=== PATIENT | female | born 1995 | race Two or more races ===

== ENCOUNTER 2022-08-27 09:39 | Inpatient (IN) | payer OTHER ==
[~2022-08-27] VITALS: Ht 160 cm; Wt 104.3 kg
[2022-08-27] MEDS ORDERED: PRENATAL + DHA1 EAC1 PO (09:53)
[2022-08-28] MEDS ORDERED: CEPHALEXIN500 M1 PO (13:41)
== END 2022-08-28 14:29 | disposition home or self-care (01) | DRG 805 ==
LOC: LDR 09:39 → OB/GYN 14:31
PROVIDERS: ADMIT Specialist; ATTEND Specialist
PROC: 10E0XZZ Delivery of Products of Conception, External Approach (ICD-10-PCS; principal; 2022-08-27)
PROC: 4A1HXCZ Monitoring of Products of Conception, Cardiac Rate, External Approach (ICD-10-PCS; 2022-08-27)
DX: O45.8X2 Other premature separation of placenta, second trimester (principal); O41.1220 Chorioamnionitis, second trimester, not applicable or unspecified; Z37.1 Single stillbirth; O60.12X0 Preterm labor second trimester with preterm delivery second trimester, not applicable or unspecified; O41.1420 Placentitis, second trimester, not applicable or unspecified; Z3A.20 20 weeks gestation of pregnancy; Z20.822 Contact with and (suspected) exposure to COVID-19

== ENCOUNTER 2022-12-07 10:35 | Outpatient (CLI) | payer OTHER ==
[~2022-12-07 10:35] MED LIST: CEPHALEXIN500 M1 PO; PRENATAL + DHA1 EAC1 PO
== END 2022-12-07 12:15 | disposition home or self-care (01) ==
LOC: PRENATAL 10:35
PROVIDERS: ATTEND Obstetrics & Gynecology Maternal & Fetal Medicine
DX: O99.210 Obesity complicating pregnancy, unspecified trimester (principal); O36.80X0 Pregnancy with inconclusive fetal viability, not applicable or unspecified; O26.899 Other specified pregnancy related conditions, unspecified trimester; O34.30 Maternal care for cervical incompetence, unspecified trimester; Z3A.01 Less than 8 weeks gestation of pregnancy

== ENCOUNTER 2023-01-05 09:57 | Outpatient (CLI) | payer OTHER | END 2023-01-05 11:10 | disposition home or self-care (01) | LOC: PRENATAL 09:57 | PROVIDERS: ATTEND Obstetrics & Gynecology Maternal & Fetal Medicine | DX: O36.80X0 Pregnancy with inconclusive fetal viability, not applicable or unspecified (principal); O99.210 Obesity complicating pregnancy, unspecified trimester; O09.219 Supervision of pregnancy with history of pre-term labor, unspecified trimester; Z3A.12 12 weeks gestation of pregnancy ==

== ENCOUNTER 2023-02-01 10:47 | Outpatient (CLI) | payer OTHER | END 2023-02-01 13:06 | disposition home or self-care (01) | LOC: PRENATAL 10:47 | PROVIDERS: ATTEND Obstetrics & Gynecology Maternal & Fetal Medicine | DX: O26.849 Uterine size-date discrepancy, unspecified trimester (principal); O09.219 Supervision of pregnancy with history of pre-term labor, unspecified trimester; O44.00 Complete placenta previa NOS or without hemorrhage, unspecified trimester; Z3A.16 16 weeks gestation of pregnancy ==

== ENCOUNTER 2023-02-23 13:46 | Outpatient (CLI) | payer OTHER | END 2023-02-23 16:40 | disposition home or self-care (01) | LOC: PRENATAL 13:46 | PROVIDERS: ATTEND Obstetrics & Gynecology Maternal & Fetal Medicine | DX: O35.9XX0 Maternal care for (suspected) fetal abnormality and damage, unspecified, not applicable or unspecified (principal); O35.3XX0 Maternal care for (suspected) damage to fetus from viral disease in mother, not applicable or unspecified; O34.30 Maternal care for cervical incompetence, unspecified trimester; O09.219 Supervision of pregnancy with history of pre-term labor, unspecified trimester; O99.210 Obesity complicating pregnancy, unspecified trimester ==

== ENCOUNTER 2023-02-27 14:16 | Emergency (ER) | payer OTHER ==
[~2023-02-27] VITALS: Ht 162.6 cm; Wt 107.0 kg
== END 2023-02-27 19:47 | disposition home or self-care (01) ==
LOC: ER 14:16
DX: O26.892 Other specified pregnancy related conditions, second trimester (principal); Z3A.21 21 weeks gestation of pregnancy; R10.2 Pelvic and perineal pain

== ENCOUNTER 2023-03-20 13:46 | Outpatient (CLI) | payer OTHER | END 2023-03-20 17:21 | disposition home or self-care (01) | LOC: PRENATAL 13:46 | PROVIDERS: ATTEND Obstetrics & Gynecology Maternal & Fetal Medicine | DX: O26.849 Uterine size-date discrepancy, unspecified trimester (principal); O34.30 Maternal care for cervical incompetence, unspecified trimester; O99.210 Obesity complicating pregnancy, unspecified trimester; Z36.9 Encounter for antenatal screening, unspecified; O09.219 Supervision of pregnancy with history of pre-term labor, unspecified trimester; Z3A.23 23 weeks gestation of pregnancy ==

== ENCOUNTER 2023-05-22 14:17 | Outpatient (CLI) | payer OTHER | END 2023-05-22 17:21 | disposition home or self-care (01) | LOC: PRENATAL 14:17 | PROVIDERS: ATTEND Obstetrics & Gynecology Maternal & Fetal Medicine | DX: O26.849 Uterine size-date discrepancy, unspecified trimester (principal); O99.210 Obesity complicating pregnancy, unspecified trimester; O36.8199 Decreased fetal movements, unspecified trimester, other fetus; O09.219 Supervision of pregnancy with history of pre-term labor, unspecified trimester; O34.30 Maternal care for cervical incompetence, unspecified trimester; Z3A.32 32 weeks gestation of pregnancy ==

== ENCOUNTER 2023-07-05 16:00 | Inpatient (IN) | payer OTHER ==
[~2023-07-05] VITALS: Ht 162.6 cm; Wt 118.8 kg
[2023-07-05 16:38] LABS: URINE APPEARANCE Clear; URINE BILIRRUBIN Negative (NEGATIVE); URINE BLOOD Large; URINE COLOR Yellow; URINE GLUCOSE Negative (NEGATIVE); URINE LEUKOCYTE Moderate; URINE NITRATE Negative; URINE PROTEIN Negative (NEGATIVE)
[2023-07-05 16:38] LABS: HEMATOCRIT 35.8 % (36.0-45.00); MEAN CELL VOLUME 87.8 fL (80.00-100.00); MEAN CORPUSCULAR HEMOGLOBIN 29.5 pg (27.00-32.0); MEAN CORPUSCULAR HGB CONC 33.6 g/dl (32.0-36.0); PLATELET COUNT 300 K/uL (150-450); RED BLOOD COUNT 4.07 M/uL (4.00-6.00); RED CELL DISTRIBUTION WIDTH 15.4 % (11.5-14.5)
[2023-07-05 16:42] LABS: URINE EPITHELIAL CELLS 19.4 uL (0.0-38.8); URINE RBC 642.3 uL (0.0-20.8); URINE WBC 203.1 uL (0.0-23.2)
[2023-07-05 16:54] LABS: INR 0.99; PARTIAL THROMBOPLASTIN TIME 25.9 SECONDS (22.0-34.0); PROTHROMBIN TIME 10.4 SECONDS (9.0-11.5)
[2023-07-05 17:00] LABS: ALBUMIN 2.7 gm/dL (3.4-5.0); BILIRUBIN TOTAL 0.24 mg/dL (0.3-1.2); CALCIUM 9.1 mg/dL (8.5-10.1); CREATININE SERUM 0.6 mg/dL (0.55-1.02); GFR 119.92; GLOBULINA 3.7 G/DL (2.4-3.5); POTASSIUM 4.18 mEq/L (3.5-5.1); TOTAL PROTEIN 6.4 gm/dL (6.4-8.2)
[2023-07-06 01:05] LABS: ABG PH 7.293 (7.35-7.45); ABG PO2 30.4 mmHg (80-100); ABG pCO2 46.7 mmHg (35-45); BASE EXCESS -4.6 mmol/l; BICARBONATE 22.1 mmol/l (23-25); SaO2 48.9 %
[2023-07-06 01:06] LABS: Tco2 23.5 mmol/l; o2 21 %
[2023-07-06 15:29] LABS: HEMATOCRIT 34.8 % (36.0-45.00); HEMOGLOBIN 11.5 g/dL (12.0-15.00); MEAN CELL VOLUME 88.3 fL (80.00-100.00); MEAN CORPUSCULAR HEMOGLOBIN 29.3 pg (27.00-32.0); MEAN CORPUSCULAR HGB CONC 33.2 g/dl (32.0-36.0); PLATELET COUNT 272 K/uL (150-450); RED BLOOD COUNT 3.94 M/uL (4.00-6.00); RED CELL DISTRIBUTION WIDTH 15.3 % (11.5-14.5)
== END 2023-07-07 14:18 | disposition home or self-care (01) | DRG 807 ==
LOC: LDR 16:00 → OB/GYN 23:44
PROVIDERS: Obstetrics & Gynecology; ADMIT Specialist; ATTEND Specialist
PROC: 10E0XZZ Delivery of Products of Conception, External Approach (ICD-10-PCS; principal; 2023-07-05)
PROC: 0UQG7ZZ Repair Vagina, Via Natural or Artificial Opening (ICD-10-PCS; 2023-07-05)
PROC: 4A1HXCZ Monitoring of Products of Conception, Cardiac Rate, External Approach (ICD-10-PCS; 2023-07-05)
DX: O70.0 First degree perineal laceration during delivery (principal); Z37.0 Single live birth; O99.214 Obesity complicating childbirth; E66.9 Obesity, unspecified; Z3A.38 38 weeks gestation of pregnancy; Z20.822 Contact with and (suspected) exposure to COVID-19

== ENCOUNTER 2025-04-02 18:36 | Outpatient (CLI) | payer OTHER ==
[~2025-04-02] VITALS: Ht 160 cm; Wt 104.3 kg
[2025-04-02 18:55] VITALS: BP 102/66
[2025-04-02] MEDS ORDERED: RINGERS SOLUTION,LACTATED 1,000 ML IV SCH (19:00)
[2025-04-02] MEDS ORDERED: CEPHALEXIN750 MG PO (19:11)
[2025-04-02] MEDS ORDERED: ECOTRIN81 MG PO (19:11)
[2025-04-02] MEDS ORDERED: IRON18 M1 PO (19:11)
[2025-04-02 19:30] LABS: BASO % 0.2 % (0.1-1.2); EOS # 0.23 (0.04-0.54); EOS % 1.8 % (0.7-7.0); LYMPH # 1.80 (1.18-3.74); LYMPH % 13.9 % (19.3-53.1); MEAN PLATELET VOLUME 9.60 fl (9.4-12.4); MONO # 0.76 (0.24-0.82); MONO % 5.9 % (4.7-12.5); NEUT # 10.06 (1.56-6.13); NEUT % 77.7 % (34.0-71.1); RED CELL DISTRIBUTION WIDTH 13.8 % (11.6-14.4); URINE APPEARANCE Cloudy; URINE BILIRRUBIN Negative (NEGATIVE); URINE BLOOD Small; URINE COLOR Yellow; URINE GLUCOSE Negative (NEGATIVE); URINE KETONE Trace (NEGATIVE); URINE LEUKOCYTE Large; URINE NITRATE Negative; URINE PROTEIN Trace (NEGATIVE); URINE UROBILINOGEN 1.0 E.U./dl
[2025-04-02 19:34] LABS: URINE BACTERIA 496.7 uL (0.0-1933); URINE EPITHELIAL CELLS 55.5 uL (0.0-38.8); URINE RBC 49.7 uL (0.0-20.8); URINE WBC 378.9 uL (0.0-23.2)
[2025-04-02 19:51] LABS: INR 0.99
[2025-04-02 19:55] LABS: ALT/SGPT 15.0 U/L (12-78); AST/SGOT 11.0 U/L (15-37); BILIRUBIN TOTAL 0.26 mg/dL (0.3-1.2); BUN CREA RATIO 16.0 (7.0-25.0); CREATININE SERUM 0.51 mg/dL (0.55-1.02); GFR 143.59; GLOBULINA 3.7 G/DL (2.4-3.5); GLUCOSE FASTING 87.0 mg/dL (65-100); OSMOLALITY SERUM 283.0 MOSM/KG (275-295)
[2025-04-02 19:59] LABS: TYPE CELLS SQUAMOUS; URINE CAST 0.73 uL (0.0-1.40); URINE CRYSTALS FEW /HPF; URINE MUCUS SCANT; URINE YEAST FEW /hpf
[2025-04-02] MEDS ORDERED: CEFAZOLIN SODIUM 1,000 MG VIAL IV SCH (22:15)
[2025-04-02 23:30] VITALS: BP 90/55
[2025-04-03 04:32] VITALS: BP 100/65
[2025-04-03 06:26] VITALS: BP 100/66; O2SAT 98
[2025-04-03] MEDS ORDERED: CEPHALEXIN500 MG PO (09:07)
[2025-04-03 11:02] VITALS: BP 94/59; O2SAT 99
[2025-04-03 15:16] VITALS: BP 105/68
[2025-04-03 19:14] LABS: CREATININE URINE 91.1 MG/DL; URINE PROT QUANT 24HR 16.6 MG/DL
[2025-04-03 19:18] LABS: URINE PROT QUANT 24 HR 249.0 MG/24HR (42-225)
[2025-04-03 19:23] LABS: CREATINE CLEARANCE 172.9 ML/MIN (97-137); CREATININE SERUM 0.55 mg/dL (0.6-1.0)
[2025-04-03 19:54] VITALS: BP 109/76
[2025-04-03 20:52] VITALS: BP 109/76
== END 2025-04-03 20:57 | disposition home or self-care (01) ==
LOC: OBS/DEL 18:36
PROVIDERS: ATTEND Specialist
DX: O26.893 Other specified pregnancy related conditions, third trimester (principal); O26.849 Uterine size-date discrepancy, unspecified trimester; O36.8199 Decreased fetal movements, unspecified trimester, other fetus; O26.899 Other specified pregnancy related conditions, unspecified trimester; O26.859 Spotting complicating pregnancy, unspecified trimester; R10.2 Pelvic and perineal pain; Z3A.24 24 weeks gestation of pregnancy

== ENCOUNTER 2025-06-17 03:35 | Outpatient (CLI) | payer OTHER ==
[~2025-06-17] VITALS: Ht 162.6 cm; Wt 113.4 kg
[2025-06-17 03:03] VITALS: BP 90/63
[~2025-06-17 03:35] MED LIST changes: +CEPHALEXIN500 MG PO; +CEPHALEXIN750 MG PO; +ECOTRIN81 MG PO; +IRON18 M1 PO
[2025-06-17 06:21] VITALS: BP 95/66; O2SAT 98
[2025-06-17] MEDS ORDERED: RINGERS SOLUTION,LACTATED 1,000 ML IV SCH (07:30)
[2025-06-17 12:17] VITALS: BP 101/66; O2SAT 98
[2025-06-17 12:48] VITALS: BP 101/66
== END 2025-06-17 14:05 | disposition home or self-care (01) ==
LOC: OBS/DEL 03:35
PROVIDERS: ATTEND Specialist
DX: O36.8130 Decreased fetal movements, third trimester, not applicable or unspecified (principal); O26.843 Uterine size-date discrepancy, third trimester; Z3A.35 35 weeks gestation of pregnancy

== ENCOUNTER 2025-06-18 17:31 | Inpatient (IN) | payer OTHER ==
[~2025-06-18] VITALS: Ht 162.6 cm; Wt 113.4 kg
[2025-06-18 17:51] VITALS: BP 125/75
[2025-06-18] MEDS ORDERED: AMPICILLIN SODIUM 2,000 MG VIAL ONE (17:55)
[2025-06-18] MEDS ORDERED: AMPICILLIN SODIUM 2,000 MG VIAL IV ONE (17:58)
[2025-06-18 18:31] LABS: BASO % 0.1 % (0.1-1.2); EOS # 0.04 (0.04-0.54); EOS % 0.2 % (0.7-7.0); LYMPH # 1.68 (1.18-3.74); LYMPH % 9.9 % (19.3-53.1); MEAN PLATELET VOLUME 10.00 fl (9.4-12.4); MONO # 0.95 (0.24-0.82); MONO % 5.6 % (4.7-12.5); NEUT # 14.28 (1.56-6.13); NEUT % 83.7 % (34.0-71.1); RED CELL DISTRIBUTION WIDTH 13.9 % (11.6-14.4)
[2025-06-18 18:32] LABS: URINE APPEARANCE Clear; URINE BILIRRUBIN Negative (NEGATIVE); URINE BLOOD Large; URINE COLOR Yellow; URINE GLUCOSE Negative (NEGATIVE); URINE KETONE Negative (NEGATIVE); URINE LEUKOCYTE Large; URINE NITRATE Negative; URINE PROTEIN Negative (NEGATIVE); URINE UROBILINOGEN 0.2 E.U./dl
[2025-06-18 18:36] LABS: URINE BACTERIA 1926.0 uL (0.0-1933); URINE EPITHELIAL CELLS 47.8 uL (0.0-38.8); URINE RBC 37.5 uL (0.0-20.8); URINE WBC 309.6 uL (0.0-23.2)
[2025-06-18 18:37] LABS: URINE CAST 0.14 uL (0.0-1.40)
[2025-06-18 18:55] LABS: INR 0.99
[2025-06-18 18:58] LABS: ALT/SGPT 14.0 U/L (12-78); AST/SGOT 12.0 U/L (15-37); BILIRUBIN TOTAL 0.4 mg/dL (0.3-1.2); BUN CREA RATIO 10.0 (7.0-25.0); CREATININE SERUM 0.61 mg/dL (0.55-1.02); GFR 115.96; GLOBULINA 4.0 G/DL (2.4-3.5); GLUCOSE FASTING 74.0 mg/dL (65-100); OSMOLALITY SERUM 278.0 MOSM/KG (275-295)
[2025-06-18] MEDS ORDERED: OXYTOCIN 500 ML IV SCH (19:00)
[2025-06-18] MEDS ORDERED: OXYTOCIN 20 UNITS/500ML RL PIGGYBAG IV ONE (19:11)
[2025-06-18] MEDS ORDERED: ERYTHROMYCIN BASE OPHT 1GM EACH TUBE OP ONE ×2 (20:00→20:45)
[2025-06-18] MEDS ORDERED: CHLORHEXIDINE GLUCONATE 120 ML BOTTLE TOP ONE ×2 (20:00→20:45)
[2025-06-18] MEDS ORDERED: OXYTOCIN 20 UNITS/1000ML RL PIGGYBAG IV ONE (20:00)
[2025-06-18] MEDS ORDERED: LIDOCAINE HCL 1% 10ML VIAL ONE (20:00)
[2025-06-18 20:51] VITALS: BP 100/74
[2025-06-18] MEDS ORDERED: AMPICILLIN SODIUM 1,000 MG VIAL IV SCH (21:00)
[2025-06-18 21:01] VITALS: BP 103/56
[2025-06-18 21:31] VITALS: BP 97/77
[2025-06-18 22:00] VITALS: BP 104/55
[2025-06-18 23:39] VITALS: BP 141/70
[2025-06-19 04:00] VITALS: BP 109/63
[2025-06-19 08:51] VITALS: BP 108/72
[2025-06-19 17:03] VITALS: BP 106/71
[2025-06-20 00:50] VITALS: BP 113/78
[2025-06-20 08:00] VITALS: BP 111/75
[2025-06-20] MEDS ORDERED: PNV,CALCIUM 72/IRON/FOLIC ACID 1 TAB TABLET PO SCH (09:00)
== END 2025-06-20 20:21 | disposition home or self-care (01) | DRG 805 ==
LOC: LDR 17:31 → OB/GYN 17:31 → LDR 18:19 → OB/GYN 06-19 03:36
PROVIDERS: ADMIT Specialist; ATTEND Specialist
PROC: 10E0XZZ Delivery of Products of Conception, External Approach (ICD-10-PCS; principal; 2025-06-18)
PROC: 0UQMXZZ Repair Vulva, External Approach (ICD-10-PCS; 2025-06-18)
PROC: 4A1HXCZ Monitoring of Products of Conception, Cardiac Rate, External Approach (ICD-10-PCS; 2025-06-18)
DX: O71.82 Other specified trauma to perineum and vulva (principal); O60.14X0 Preterm labor third trimester with preterm delivery third trimester, not applicable or unspecified; Z37.0 Single live birth; O99.824 Streptococcus B carrier state complicating childbirth; Z3A.36 36 weeks gestation of pregnancy